=== PATIENT | female | born 1955 | race Caucasian/White ===

== ENCOUNTER 2018-10-04 06:52 | Inpatient (IN) ==
[2018-10-04] MEDS ORDERED: PANTOPRAZOLE 40 MG VIAL IV STA ×2 (07:16→08:00)
[2018-10-04] MEDS ORDERED: SODIUM CHLORIDE 0.9% 1,000 ML IV STA (07:16)
[2018-10-04] MEDS ORDERED: ONDANSETRON 4 MG/2 ML VIAL IV STA (07:16)
[2018-10-04 07:49] LABS: Basophils # 0.1 10*3/uL (0.0-0.2); Basophils % 0.4 % (0.0-0.8); Eosinophils # 0.1 10*3/uL (0.0-0.87); Eosinophils % 0.4 % (0.00-10.9); Hematocrit 27.2 VOL% (35.7-47.0); Hemoglobin 8.8 GM/DL (12.0-16.0); Immature Granulocytes % 0.6 %; Lymphocytes # 2.2 10*3/uL (1.4-4.0); Lymphocytes % 13.5 % (21.3-54.2); Mean Corpuscular HGB Conc 32.4 GM/DL (32-36); Mean Corpuscular Volume 93.5 FL (87-102); Monocytes % 5.4 % (1.7-12.7); Neutrophils % 79.7 % (38.7-73.9); Platelet Count 183 T/CUMM (130-400); Red Blood Count 2.91 MC/CUMM (3.8-5.5); White Blood Count 16.2 T/CUMM (4-12)
[2018-10-04 07:59] LABS: PT Patient Result 10.5 SECS
[2018-10-04 08:04] LABS: Albumin 3.3 G/DL (3.4-5.0); Bilirubin,Total 0.5 MG/DL (0.2-1.0); Calcium 8.8 MG/DL (8.5-10.1); Osmolality,Calculated 299.4 MOS/KG (273-304); Total Protein 6.7 G/DL (6.4-8.3)
[2018-10-04] MEDS ORDERED: ONDANSETRON 4 MG/2 ML VIAL IV PRN (08:28)
[2018-10-04] MEDS ORDERED: SODIUM CHLORIDE 0.45% 1,000 ML IV SCH (08:30)
[2018-10-04] MEDS: PANTOPRAZOLE INJ 200 MG in SODIUM CHLORIDE 0.9% 250 ML IV SCH (09:15)
[2018-10-04] MEDS: DOCUSATE SODIUM 100 MG CAPSULE PO SCH ×2 (09:23→21:31)
[2018-10-04] MEDS: INSULIN REGULAR 100 UNIT/ML SUBCUT SCH ×3 (11:23→21:30)
[2018-10-04] MEDS: SODIUM CHLORIDE 0.9% 1,000 ML IV SCH (11:46)
[2018-10-04] MEDS: TAMSULOSIN 0.4 MG CAPSULE PO SCH (11:46)
[2018-10-04] MEDS: LOSARTAN 50 MG TABLET PO SCH (11:49)
[2018-10-04] MEDS: ACETAMINOPHEN 325 MG TABLET PO PRN (21:34)
[2018-10-05] MEDS: SODIUM CHLORIDE 0.9% 1,000 ML IV SCH ×4 (01:06→16:59)
[2018-10-05 05:08] LABS: Basophils # 0.1 10*3/uL (0.0-0.2); Basophils % 0.4 % (0.0-0.8); Eosinophils # 0.1 10*3/uL (0.0-0.87); Eosinophils % 1.2 % (0.00-10.9); Hemoglobin 6.7 GM/DL (12.0-16.0); Immature Granulocytes % 0.5 %; Immature Granulocytes Absolute 0.06 #; Lymphocytes # 3.2 10*3/uL (1.4-4.0); Lymphocytes % 26.5 % (21.3-54.2); Mean Corpuscular HGB Conc 31.9 GM/DL (32-36); Mean Corpuscular Volume 95.9 FL (87-102); Mean Platelet Volume 12.1 FL (9.6-12.0); Monocytes % 7.9 % (1.7-12.7); Neutrophils % 63.5 % (38.7-73.9); Platelet Count 125 T/CUMM (130-400); Red Blood Count 2.19 MC/CUMM (3.8-5.5); Red Cell Distribution Width 13.2 % (9.3-17.3); White Blood Count 12.1 T/CUMM (4-12)
[2018-10-05 05:34] LABS: Calcium 7.9 MG/DL (8.5-10.1); Osmolality,Calculated 292.7 MOS/KG (273-304)
[2018-10-05] MEDS ORDERED: SODIUM CHLORIDE 0.9% 1,000 ML IV PRN (07:20)
[2018-10-05] MEDS: INSULIN REGULAR 100 UNIT/ML SUBCUT SCH ×4 (08:15→21:39)
[2018-10-05] MEDS: PANTOPRAZOLE INJ 200 MG in SODIUM CHLORIDE 0.9% 250 ML IV SCH (08:15)
[2018-10-05] MEDS ORDERED: PROPOFOL 200 MG/20 ML VIAL IV ONE (10:00)
[2018-10-05] MEDS ORDERED: LIDOCAINE 2% 5 ML VIAL ONE (10:00)
[2018-10-05] MEDS: TAMSULOSIN 0.4 MG CAPSULE PO SCH (10:29)
[2018-10-05] MEDS: DOCUSATE SODIUM 100 MG CAPSULE PO SCH ×2 (10:29→21:39)
[2018-10-05] MEDS: LOSARTAN 50 MG TABLET PO SCH (10:30)
[2018-10-05] MEDS ORDERED: PANTOPRAZOLE 40 MG TABLET PO ONE (17:44)
[2018-10-05] MEDS: PANTOPRAZOLE 40 MG TABLET PO SCH (18:35)
[2018-10-05] MEDS: ACETAMINOPHEN 325 MG TABLET PO PRN (21:42)
[2018-10-06] MEDS: SODIUM CHLORIDE 0.9% 1,000 ML IV SCH (05:27)
[2018-10-06] MEDS: PANTOPRAZOLE 40 MG TABLET PO SCH (06:33)
[2018-10-06 07:22] LABS: Basophils % 0.5 % (0.0-0.8); Eosinophils # 0.2 10*3/uL (0.0-0.87); Eosinophils % 2.3 % (0.00-10.9); Hematocrit 26.2 VOL% (35.7-47.0); Hemoglobin 8.5 GM/DL (12.0-16.0); Immature Granulocytes % 0.8 %; Immature Granulocytes Absolute 0.07 #; Lymphocytes # 2.3 10*3/uL (1.4-4.0); Lymphocytes % 26.4 % (21.3-54.2); Mean Corpuscular HGB Conc 32.4 GM/DL (32-36); Mean Corpuscular Volume 88.8 FL (87-102); Mean Platelet Volume 12.2 FL (9.6-12.0); Monocytes % 8.4 % (1.7-12.7); NRBC # 0.02 10*3/uL; Neutrophils % 61.6 % (38.7-73.9); Platelet Count 105 T/CUMM (130-400); Red Blood Count 2.95 MC/CUMM (3.8-5.5); Red Cell Distribution Width 16.8 % (9.3-17.3); White Blood Count 8.6 T/CUMM (4-12)
[2018-10-06 08:22] VITALS: BP 130/60
[2018-10-06] MEDS: TAMSULOSIN 0.4 MG CAPSULE PO SCH (08:31)
[2018-10-06] MEDS: INSULIN REGULAR 100 UNIT/ML SUBCUT SCH (08:31)
[2018-10-06] MEDS: DOCUSATE SODIUM 100 MG CAPSULE PO SCH (08:31)
[2018-10-06] MEDS: LOSARTAN 50 MG TABLET PO SCH (08:32)
== END 2018-10-06 10:55 | disposition home or self-care (01) | DRG 378 ==
LOC: N.ED 06:52 → N.TELEN 09:10
PROVIDERS: ADMIT Family Medicine; ATTEND Family Medicine